=== PATIENT | male | born 1985 | race Hispanic/Latino ===

== ENCOUNTER 2018-05-06 06:56 | Emergency (ER) | payer SELFPAY ==
[2018-05-06] MEDS ORDERED: Ketorolac Tromethamine 60 MG/2 ML VIAL ONE (07:08)
== END 2018-05-06 07:40 | disposition home or self-care (01) ==
LOC: ERS 06:56
DX: M54.5 Low back pain (principal); F17.210 Nicotine dependence, cigarettes, uncomplicated
CPT/HCPCS: 96372; J1885

== ENCOUNTER 2018-05-06 09:05 | Emergency (ER) | payer SELFPAY ==
[2018-05-07] MEDS ORDERED: Ibuprofen 100 MG/5 ML UDCUP ONE (10:00)
== END 2018-05-06 09:56 | disposition home or self-care (01) ==
LOC: ERS 09:05
DX: M54.5 Low back pain (principal); F17.210 Nicotine dependence, cigarettes, uncomplicated
CPT/HCPCS: 99283

== ENCOUNTER 2019-12-19 21:39 | Observation (INO) | payer SELFPAY ==
[~2019-12-19 21:39] MED LIST: Iopamidol-370 76% 500 ML 1 ML ONE
[2019-12-19 23:23] LABS: Hemoglobin 11.4 g/dL (14.0-18.0); Mean Corpuscular HGB CONC 33.3 g/dL (32.0-36.0); Mean Corpuscular Hemoglobin 29.9 pg (27.0-31.0); Mean Corpuscular Volume 89.9 fL (78.0-98.0); RBC Distribution Width 14.3 % (11.5-14.5)
[2019-12-19 23:40] LABS: ALT (SGPT) 91 U/L (8-55); AST (SGOT) 38 U/L (5-34); Albumin 3.4 g/dL (3.5-5.0); Alkaline Phosphatase 121 U/L (40-110); Anion Gap 14 mmol/L (10-20); BUN (Urea Nitrogen) 25 mg/dL (8.9-20.6); Bilirubin, Total 0.2 mg/dL (0.2-1.2); Calc. Creatinine Clearance 0 mL/min (70-130); Calcium 8.7 mg/dL (7.8-10.44); Carbon Dioxide 28 mmol/L (22-29); Chloride 100 mmol/L (98-107); Estimated GFR-MDRD Greater than 90; Globulin 3.7 g/dL (2.4-3.5); Glucose 86 mg/dL (70-105); Lipase 22 U/L (8-78); Potassium 4.4 mmol/L (3.5-5.1); Protein, Total 7.1 g/dL (6.0-8.3); Sodium 138 mmol/L (136-145)
[2019-12-19 23:48] LABS: Eosinophils 1 % (0-10); Lymphocytes 24 % (21-51); MDiff Complete? YES; Mean Platelet Volume 6.1 fL (7.4-10.4); Neutrophil 75 % (42-75); Platelet Count 489 thou/uL (130-400); White Blood Cell (WBC) Count 6.8 thou/uL (4.8-10.8)
[2019-12-20] MEDS ORDERED: Ondansetron PF 4 MG/2 ML Vial ONE (00:19)
[2019-12-20] MEDS ORDERED: Morphine 4 MG/ML VIAL ONE (00:19)
--- NOTE | 2019-12-20 01:11 | PDOC.FPRHP ---
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 Per the patient's sisters, who were present during the evaluation, the patient recently underwent 5 sessions of chemotherapy before traveling back to the [facility] area in order to pursue treatment from Dr. Whittaker (Oncology). The patient's pain is localized to the RLQ and LLQ, is stabbing / burning in nature and does not radiation. The patient states that eating ice chips and drinking cold fluids help, along with PO Morphine and Methadone that he has been taking since his DC from the outside facility. The patient rates his pain as an 8/10 prior to administration of Morphine in the ED, and was 5/10 at the time of evaluation. The patient's associated symptoms are variable, and include GERD, polyuria, 20 LBS weight loss in ~1.5 weeks, hot/cold flashes, excessive sleep (> 20H per day) , CP (right-sided, worse with inspiration) and SOB with occasional nausea. The patient denies PRITCHARD, auditory or visual disturbances, epistaxis, rhinorrhea, oral ulcers, sore throat, cough, vomiting, diarrhea, constipation, dysuria, hematuria , penile lesions/masses, bloody stools, muscle aches/joint pains. Upon further questioning, the patient admitted to a recent bout of itching that he noticed under his scrotum. ED Course: While in the ED, the patient was given Morphine 4 mg IV, Zofran 4 mg PO and a 1L bolus of NS. Blood Type: O+, Antibody Negative Alk Phos: 121 AST: 38 ALT: 91 CT ABD/Pelvis: Report Pending - Allergies/Adverse Reactions Allergies Allergy/AdvReac Type Severity Reaction Status Date / Time No Known Allergies Allergy Unverified 12/20/19 02:28 - Home Medications Comments: Per the patient's DC summary from the outside facility, the patient's current medication regimen includes Morphine 15 mg PO Q6H PRN, Methadone 5 mg PO Q8H PRN , Baclofen 10 mg PO Q8H, Colace 100 mg PO BID, Zofran 4 mg PO Q4H PRN, Senna 2 tabs PO daily. - History PMHx: None Allergies: None PSHx: Ex Lap w/ Biopsy (Recent) FHx: Mother (HTN, DM2, COPD, CAD) Father (HLD, HTN, CVA) Paternal Grandfather ( Colon Cancer) Maternal Grandfather (Testicular Cancer) Social: Cigarettes 3/4 PPD (Recently Quit on 12/02), Methamphetamine Abuse (12/02 ), No EtOH Abuse Code: Full - Review of Systems General: reports: weight/appetite/sleep changes, fatigue. denies: fever/chills Eyes: denies: vision changes ENT: denies: nasal congestion, rhinorrhea Respiratory: reports: shortness of breath, exercise intolerance. denies: cough , congestion Cardiovascular: reports: chest pain. denies: palpitation, edema Gastrointestinal: reports: nausea, abdominal pain. denies: vomiting, diarrhea, constipation, GI bleeding Genitourinary: reports: dysuria (Patient reports dysuria at the end of his urinary stream), polyuria, other (Itching). denies: discharge Skin: reports: itching (See ) Musculoskeletal: denies: arthritis/arthralgias Neurological: denies: syncope, weakness - Vital signs BP: [119/67] HR: [96] RR: [16] Tmax: [98.2] Pox: [100]% on [Room Air] Wt: [71 kg] - Physical Exam Constitutional: NAD, awake, alert and oriented, well developed, other (Patient was mildly altered due to the recent administration of Morphine. A&Ox3) HEENT: normocephalic and atraumatic, PERRLA, EOMI, conjunctiva clear, no scleral icterus, grossly normal vision, grossly normal hearing, normal nasal mucosa, MMM, oropharynx clear Neck: supple, FROM, trachea midline, no LAD Chest: no-tender to palpation, no lesions Heart: RRR, normal S1/S2, no murmurs/rubs/gallops, pulses present, no edema Lungs: CTAB, no respiratory distress, good air movement, no rales/rhonchi, no wheezing, no retractions Abdomen: soft, bowel sounds present, no masses/distention -Abdomen: TTP in RLQ and LLQ Musculoskeletal: normal structure, ROM grossly normal Neurological: no focal deficit Skin: other (Diffuse macular rash in the perineal/inguinal areas w/o obvious sores, bleeding or crusting.) Heme/Lymphatic: no unusual bruising or bleeding, no purpura, no petechia, no LAD Psychiatric: other (Patient denied Suicidal Ideation - See General) FMR H&P: Results - Labs Result Diagrams: 12/19/19 23:09 12/19/19 23:09 Lab results: WBC 6.8 thou/uL (4.8-10.8) 12/19/19 23:09 Hgb 11.4 g/dL (14.0-18.0) L 12/19/19 23:09 Hct 34.1 % (42.0-52.0) L 12/19/19 23:09 MCV 89.9 fL (78.0-98.0) 12/19/19 23:09 Plt Count 489 thou/uL (130-400) H 12/19/19 23:09 Sodium 138 mmol/L (136-145) 12/19/19 23:09 Potassium 4.4 mmol/L (3.5-5.1) 12/19/19 23:09 Chloride 100 mmol/L (98-107) 12/19/19 23:09 Carbon Dioxide 28 mmol/L (22-29) 12/19/19 23:09 BUN 25 mg/dL (8.9-20.6) H 12/19/19 23:09 Creatinine 0.82 mg/dL (0.7-1.3) 12/19/19 23:09 Glucose 86 mg/dL (70-105) 12/19/19 23:09 Calcium 8.7 mg/dL (7.8-10.44) 12/19/19 23:09 Total Bilirubin 0.2 mg/dL (0.2-1.2) 12/19/19 23:09 AST 38 U/L (5-34) H 12/19/19 23:09 ALT 91 U/L (8-55) H 12/19/19 23:09 Alkaline Phosphatase 121 U/L (40-110) H 12/19/19 23:09 Serum Total Protein 7.1 g/dL (6.0-8.3) 12/19/19 23:09 Albumin 3.4 g/dL (3.5-5.0) L 12/19/19 23:09 Lipase 22 U/L (8-78) 12/19/19 23:09 FMR H&P: A/P - Problem List (1) Intractable abdominal pain Current Visit: Yes Status: Acute Code(s): R10.9 - UNSPECIFIED ABDOMINAL PAIN (2) Germ cell cancer Current Visit: Yes Status: Acute Code(s): C80.1 - MALIGNANT (PRIMARY) NEOPLASM, UNSPECIFIED (3) Fungal infection of skin Current Visit: Yes Status: Acute Code(s): B36.9 - SUPERFICIAL MYCOSIS, UNSPECIFIED (4) Weight loss, unintentional Current Visit: Yes Status: Acute Code(s): R63.4 - ABNORMAL WEIGHT LOSS (5) Polysubstance abuse Current Visit: Yes Status: Chronic Code(s): F19.10 - OTHER PSYCHOACTIVE SUBSTANCE ABUSE, UNCOMPLICATED - Plan Patient is a 34 y/o male with a recent diagnosis of Germ Cell Tumor ( Primary Origin Unknown) who presents to the ED for evaluation of intractable pain. 1. Intractable ABD Pain -Non-cancer causes of pain appear unlikely at this point - unremarkable HPI, ROS , Physical Exam -Lipase: 22 -Alk Phose: 121 -AST: 38 / ALT: 91 -Morphine 6 mg IV Q4H JOSE C for pain w/ Morphine 2 mg IV Q4H PRN for breakthrough pain -Will continue Methadone regimen -Consider Dilaudid or Anesthesia Consult if pain remains poorly controlled 2. Germ Cell Cancer -Records from outside facility given to Nursing staff -Oncology Consult: Pending 3. Fungal Infection -Localized to perineal/inguinal area - no obvious sores or oozing -Likely secondary to poor hygiene and immunocompromised state -Topical Clotrimazole 1% BID 4. Unintentional Weight Loss -Patient admits to ~20 LBS weight loss in past 2 weeks -Likely 2/2 to chemotherapy regimen -Will supplement Regular Diet as tolerated 5. Polysubstance Abuse -Patient admits to a Hx of Methamphetamine abuse -Will order UDS to rule out additional sources of intoxication PCP: None - Will Establish w/ Dr. Whittaker Code: Full Activity: Ad nancy Diet: Regular w/ Supplements VTE PPx: Lovenox 40 mg SC w/ SCDs Dispo: Patient is currently stable and will be admitted to the Oncology Floor for ongoing management of his intractable pain. Will likely consult Oncology in the AM - recs appreciated. 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 The oncologist in [place] spoke with Dr. Whittaker who agreed to continue treatment in [place] per report of family. The patient received 5 doses of chemotherapy last week. He states he has lost 20lbs in the last 2 weeks. Patient comes in tonight for intractable abdominal pain which has worsened since he left the hospital in [place]. The pain is worse with movement. He is still tolerating PO but has decreased appetite. He denies fevers, chills, sweats , vomiting, or diarrhea. He denies burning or blood with urination. REVIEW OF SYSTEMS: Gen: no fever, chills, or sweats Neuro: denies headache Eyes: no visual changes ENT: no hearing changes, no sore throat, no congestion Resp: denies cough, SOB Card: denies CP, palpitations GI: see hpi Skin: no rash, no erythema PHYSICAL EXAMINATION: General: NAD, alert and oriented x3 HEENT: PERRLA, EOMI, normal sclera, oropharynx without erythema or exudate Neck: Supple. Full ROM. Heart/Cardiovascular System: RRR, Cap refill < 3 seconds, no rub, no murmur Lungs/Respiratory System: CTA-B, no resp distress Abdomen/Gastro-Intestinal System: soft, mass palpable in suprapubic region, no guarding/rebound, normal bowel sounds Extremities: Warm extremities. No cyanosis or edema Neuro: No gross deficits appreciated. CN 2-12 grossly intact Psychiatry: Awake, Alert and cooperative with exam Skin: fungal infection affecting perineum, satellite lesions present Musculoskeletal: Full ROM A/P: # Metastatic Testicular Cancer, intractable pain/nausea - Consult Oncology in AM, appreciate recs - Cont methadone - Was on 60mg Morhine PO daily, coverts to 30mg IV daily o Started patient on 6mg morphine IV q6 JOSE C o 2mg q2 hr PRN for breakthrough - Zofran - Based on families report, mass has decreased in size from [place] to here based on Vrad read # Cutaneous Candidiasis - Start clotrimazole, may need oral tx of not improving # Transaminitis - Likely 2/2 metastatic cancer affecting abdomen] # Hx of substance abuse - Last used meth 2 weeks ago, UDS pending Fluids: LR 110ml/hr Code status: full, poa on file PPx: lovenox Dispo: pending establishing with onc, pain control
[2019-12-20 02:31] LABS: Bilirubin Negative (Negative); Blood, Urine Negative (Negative); Clarity Clear (Clear); Glucose, Urine (Dipstick) Normal (Negative); Leukocyte Negative Leu/uL (Negative); Nitrite Negative (Negative); Protein, Urine (Dipstick) Negative (Neg-Trace); Urobilinogen Normal mg/dL (Less than 2)
[2019-12-20 02:33] LABS: Amphetamine Not Detected (NotDetected); Barbiturates Screen Not Detected (NotDetected); Benzodiazepine Screen Not Detected (NotDetected); Cocaine Metabolite Screen Not Detected (NotDetected); Medtox Control Line Valid? VALID (VALID); Medtox Reader # READER 4; Methadone Detected (NotDetected); Methamphetamine Not Detected (NotDetected); Opiate Screen Detected (NotDetected); Oxycodone Screen Not Detected (NotDetected); Phencyclidine (PCP) Not Detected (NotDetected); THC/Cannabinoid Screen Not Detected (NotDetected); Tricyclic Screen Not Detected (NotDetected)
[2019-12-20] MEDS ORDERED: Acetaminophen 325 MG TAB PO PRN (03:56)
[2019-12-20] MEDS ORDERED: Morphine 2 MG/ML SYRINGE SLOW IVP PRN (03:56)
[2019-12-20] MEDS ORDERED: Ondansetron ODT 4 MG TAB PO PRN (03:56)
[2019-12-20] MEDS ORDERED: METHadone HCl 10 MG TAB PO PRN (03:56)
[2019-12-20] MEDS ORDERED: Docusate 100 MG CAP PO PRN (03:56)
[2019-12-20] MEDS: Lactated Ringer's 1,000 ML IV SCH ×3 (04:43→17:10)
[2019-12-20] MEDS: Morphine 10 MG/ML VIAL SLOW IVP SCH ×5 (05:10→21:37)
--- NOTE | 2019-12-20 05:34 | PDOC.FPRHP ---
- Allergies/Adverse Reactions Allergies Allergy/AdvReac Type Severity Reaction Status Date / Time No Known Allergies Allergy Unverified 12/20/19 02:28 - Home Medications Medication Instructions Recorded Confirmed Type Baclofen 10 mg PO Q8HR 12/20/19 12/20/19 History Docusate [Colace] 100 mg PO BID 12/20/19 12/20/19 History METHadone HCl [Methadone HCl] 5 mg PO Q8HR 12/20/19 12/20/19 History Morphine IR Tab 15 mg PO Q6HR PRN 12/20/19 12/20/19 History Ondansetron [Zofran ODT] 4 mg PO Q4HR PRN 12/20/19 12/20/19 History Sennosides [Senna] 8.6 mg PO BID 12/20/19 12/20/19 History - History PMHx: PSHx: FHx: Social: - Vital signs BP: [] HR: [] RR: [] Tmax: [] Pox: []% on [] Wt: [] FMR H&P: Results - Labs Result Diagrams: 12/19/19 23:09 12/19/19 23:09 Lab results: WBC 6.8 thou/uL (4.8-10.8) 12/19/19 23:09 Hgb 11.4 g/dL (14.0-18.0) L 12/19/19 23:09 Hct 34.1 % (42.0-52.0) L 12/19/19 23:09 MCV 89.9 fL (78.0-98.0) 12/19/19 23:09 Plt Count 489 thou/uL (130-400) H 12/19/19 23:09 Sodium 138 mmol/L (136-145) 12/19/19 23:09 Potassium 4.4 mmol/L (3.5-5.1) 12/19/19 23:09 Chloride 100 mmol/L (98-107) 12/19/19 23:09 Carbon Dioxide 28 mmol/L (22-29) 12/19/19 23:09 BUN 25 mg/dL (8.9-20.6) H 12/19/19 23:09 Creatinine 0.82 mg/dL (0.7-1.3) 12/19/19 23:09 Glucose 86 mg/dL (70-105) 12/19/19 23:09 Calcium 8.7 mg/dL (7.8-10.44) 12/19/19 23:09 Total Bilirubin 0.2 mg/dL (0.2-1.2) 12/19/19 23:09 AST 38 U/L (5-34) H 12/19/19 23:09 ALT 91 U/L (8-55) H 12/19/19 23:09 Alkaline Phosphatase 121 U/L (40-110) H 12/19/19 23:09 Serum Total Protein 7.1 g/dL (6.0-8.3) 12/19/19 23:09 Albumin 3.4 g/dL (3.5-5.0) L 12/19/19 23:09 Lipase 22 U/L (8-78) 12/19/19 23:09 Urine Ketones Negative mg/dL (Negative) 12/20/19 02:04 Urine Blood Negative (Negative) 12/20/19 02:04 Urine Nitrite Negative (Negative) 12/20/19 02:04 Ur Leukocyte Esterase Negative Anel/uL (Negative) 12/20/19 02:04 FMR H&P: A/P - Problem List (1) Intractable abdominal pain Current Visit: Yes Status: Acute Code(s): R10.9 - UNSPECIFIED ABDOMINAL PAIN (2) Germ cell cancer Current Visit: Yes Status: Acute Code(s): C80.1 - MALIGNANT (PRIMARY) NEOPLASM, UNSPECIFIED (3) Fungal infection of skin Current Visit: Yes Status: Acute Code(s): B36.9 - SUPERFICIAL MYCOSIS, UNSPECIFIED (4) Weight loss, unintentional Current Visit: Yes Status: Acute Code(s): R63.4 - ABNORMAL WEIGHT LOSS (5) Polysubstance abuse Current Visit: Yes Status: Chronic Code(s): F19.10 - OTHER PSYCHOACTIVE SUBSTANCE ABUSE, UNCOMPLICATED FMR H&P: Upper Level - Plan Date/Time: 12/20/19 0530 I, [], have evaluated this patient and agree with findings/plan as outlined by music internship resident. Pertinent changes/additions are listed here.
[2019-12-20 05:37] VITALS: BMI 25.0
[2019-12-20] MEDS ORDERED: METHadone HCl 10 MG TAB PO SCH (06:00)
--- NOTE | 2019-12-20 07:18 | CT ---
PRELIMINARY REPORT/[facility]/AFTER HOURS PROCEDURE CT ABDOMEN AND PELVIS WITH INTRAVENOUS CONTRAST: CLINICAL HISTORY: M34 presents to ED for abd pain and lethargy. Pt reports: nausea, lack of appetite, weakness. Pt stat es he was dx with germ cell cancer 2 weeks ago. Pt states last chemotherapy treatment was done Thursd ay. Pt states abd pain is a burning sensation. Pt reports unknown metastasis in the abd. Pt reports h x of methamphetamine use and states he last used in November. TECHNIQUE: Axial computed tomography images of the abdomen and pelvis with intravenous contrast. CONTRAST: With Isovue-370 100 mL. COMPARISON: None provided. FINDINGS: LUNG BASES: No basilar airspace consolidation or pleural effusion. LIVER: Unremarkable. GALLBLADDER AND BILE DUCTS: Unremarkable. No calcified stone. No ductal dilation. PANCREAS: Unremarkable. SPLEEN: Unremarkable. ADRENAL GLANDS: Unremarkable. KIDNEYS, URETERS, AND BLADDER: Unremarkable. No hydronephrosis or nephrolithiasis. No ureteral or lyn dder calculi. STOMACH AND BOWEL: Moderate retained fecal material within the colon, correlate for obstipation. APPENDIX: The appendix is somewhat prominent, no definite evidence of acute appendicitis. Correlate c linically may consider follow-up. PERITONEUM: No free fluid. No free air. LYMPH NODES: No lymphadenopathy. REPRODUCTIVE: Unremarkable as visualized. VASCULATURE: No aortic aneurysm. BONES: No fracture or suspicious osseous abnormality. ABDOMINAL WALL AND SOFT TISSUES: Unremarkable. MISCELLANEOUS: 6 x 12 x 13 cm oval mass at the lower abdomen is seen with mild surrounding fat strand ing-edema. There is suggestion of internal septation versus internal vascularity. There is thin perip heral wall enhancement. The mass appears predominantly hypodense. Given the clinical history, retrope ritoneal tumor/metastasis is suspected. Follow-up to exclude other considerations such as complex hem atoma abscess, or nonspecific soft tissue neoplasm. IMPRESSION: A 6 x 12 x 13 cm oval mass at the lower abdomen is seen with mild surrounding fat stranding-edema. Th ere is suggestion of internal septation versus internal vascularity. There is thin peripheral wall en hancement. The mass appears predominantly hypodense. Given the clinical history, retroperitoneal tumo r/metastasis is suspected. Follow-up to exclude other considerations. ELECTRONICALLY SIGNED BY: Tanvir Barajas MD Dec 20, 2019 12:39:27 AM GROUND CREW CHIEF This report is intended for review by the ordering physician only, in accordance of law. If you recei ve this report in error, please call [facility] at [phone]. FINAL REPORT CT ABDOMEN AND PELVIS WITH CONTRAST: FINDINGS/IMPRESSION: I agree with the findings and impression given in the preliminary report per the [facility] phy sician. There is a heterogeneous mass in the lower abdomen. The center of this mass is centered within the me sentery rather than in the retroperitoneum and it is favored that this is a mesenteric mass rather th an a retroperitoneal mass. In fact, the mass appears to extend slightly to the left on the inferior a spect and may extend toward the left inguinal canal. Please evaluate on physical examination for desc ended testicles. If a left testicle is not present then this could be a tumor of an undescended testi taylor. CODE QA
[2019-12-20] MEDS ORDERED: Milk Of Magnesia 30 ML UDCUP PO PRN (08:00)
[2019-12-20] MEDS ORDERED: Docusate 100 MG CAP PO SCH (08:00)
[2019-12-20] MEDS: Clotrimazole 1 % Cream 30 GM TUBE TOP SCH ×2 (08:15→21:39)
[2019-12-20] MEDS ORDERED: Prevnar 13-Val Conj/PF 0.5 ML SYRINGE IM ONE (09:00)
[2019-12-20] MEDS ORDERED: FLU VACC QS2019-20(6MOS UP)/PF 60 MCG/0.5 ML SYRINGE IM ONE (09:00)
--- NOTE | 2019-12-20 09:19 | ULT ---
Ultrasound of theabdomen: 12/20/2019 COMPARISON:None available HISTORY:Elevated liver enzymes History of germ cell tumor TECHNIQUE: Multiplanar grayscale sonographic imaging of theabdomen FINDINGS:The pancreas is obscured by bowel gas. Imaged IVC and aorta appear within normal limits. How ever, mid and distal abdominal aorta is obscured by bowel gas. No focal liver lesion or intrahepatic biliary dilatation. No gallbladder wall thickening or perichole cystic fluid. No gallstones noted. Gallbladder mildly distended. Common duct measures 3 mm, within normal limits. Right kidney measures 9.9 cm craniocaudal dimension and demonstrates no stone hydronephrosis or mass. Left kidney measures 10.1 cm craniocaudal dimension and demonstrates no stone hydronephrosis or mass. Spleen is normal in size measuring up to 10.4 cm. The automotive upholsterer reports a negative Garcia's s ign. IMPRESSION:No acute findings.
[2019-12-20] MEDS: Baclofen 10 MG TAB PO SCH ×3 (09:36→21:36)
[2019-12-20] MEDS: Famotidine 20 MG TAB PO SCH ×2 (09:36→21:36)
[2019-12-20] MEDS: Senokot 8.6 MG TAB PO SCH ×2 (09:36→21:37)
[2019-12-20] MEDS: Enoxaparin Sodium 40 MG/0.4 ML SYRINGE SC SCH (09:38)
[2019-12-20 10:28] LABS: Lactic Acid 1.1 mmol/L (0.5-2.2)
[2019-12-20 10:59] LABS: HBSAg Index 0.15 S/CO (0-0.99); Hep B Core Total Ab Non-Reactive (NonReactive); Hep B Core Total Index 0.05 S/CO (0-0.79); Hep B Surf Ag Non-Reactive S/CO (NonReactive); Hep C IgG Ab Non-Reactive (NonReactive)
[2019-12-20 11:52] LABS: HBSAB Concentration 4129.12 mIU/mL; Hep B Surf AB Reactive (NonReactive)
[2019-12-20] MEDS: METHadone HCl 10 MG TAB PO SCH ×2 (12:40→18:41)
--- NOTE | 2019-12-20 17:18 | HP ---
Please see the history and physical done by Scott Kirkland, for which I agree. The patient was seen, evaluated, discussed, and examined with the residents by bedside. HISTORY OF PRESENT ILLNESS: This is an unfortunate 34-year-old, who was diagnosed with germ cell cancer semi-testicular when he was visiting people in [place] in the last couple of months and was planning on transferring care to Dr. Whittaker here. It is supposed to be getting day #9 chemotherapy today and the plan was for him to drive to [place] this morning to get that, but he has had a severe pain last night that he came in for pain management. He is on home methadone 5 mg p.o. q.8 hours and morphine 15 mg p.o. q.6, but he is still on a lot of breakthrough pain and comes in to get better pain management and also to get Oncology involved here. Extremely nauseous, wants to vomit, but has not been vomiting. He does feel he is constipated. PAST MEDICAL HISTORY: All through the resident history and physical, for which I agree. PAST SURGICAL HISTORY: All through the resident history and physical, for which I agree. FAMILY HISTORY: All through the resident history and physical, for which I agree. ALLERGIES: ALL THROUGH THE RESIDENT HISTORY AND PHYSICAL, FOR WHICH I AGREE. HOME MEDICATIONS: All through the resident history and physical, for which I agree. REVIEW OF SYSTEMS: All through the resident history and physical, for which I agree. PHYSICAL EXAMINATION: VITAL SIGNS: Afebrile. Vital signs are stable. GENERAL: Does not appear to be in severe pain. Alert and oriented x3 appropriate. Eating well. EENT: Conjunctivae not pale. Sclerae anicteric. Moist mucosa. NECK: No JVD, lymphadenopathy, or bruits. CHEST: Clear. HEART: Regular rate and rhythm. ABDOMEN: Benign, other than right lower and suprapubic tenderness and obvious fullness in those areas. EXTREMITIES: Showed no edema. LABORATORY DATA: Does show a slightly low hemoglobin. Liver function tests slightly elevated. His calcium level was fine. ASSESSMENT AND PLAN: 1. Testicular cancer with retroperitoneal mass, likely metastatic issues. 2. Severe abdominal pain. 3. History of polysubstance abuse. Plan is to get Oncology involved if he truly needs a treatment today. I do not want to decrease that obviously. We will continue higher dose methadone, we will go to 10 mg q.8 and we switched morphine to 6 mg IV q.2 to 4 hours p.r.n. We will eventually have to figure out what home dose p.o. medications we can do for him that may work better. He did state IV Dilaudid last hospitalization was helpful. Does not appear to be in severe pain currently. Job ID: [id number]
[2019-12-21] MEDS: METHadone HCl 10 MG TAB PO SCH ×3 (01:52→18:30)
[2019-12-21] MEDS: Morphine 10 MG/ML VIAL SLOW IVP SCH ×3 (01:54→12:37)
[2019-12-21] MEDS: Lactated Ringer's 1,000 ML IV SCH (02:01)
[2019-12-21 04:30] LABS: #Lymphocytes 0.8 thou/uL (1.20-3.40); #Neutrophils 2.2 thou/uL (1.40-6.50); %Basophils 0.4 % (0.0-1.0); %Eosinophils 1.6 % (0.0-10.0); %Lymphocytes 25.9 % (21.0-51.0); %Monocytes 0.8 % (0.0-10.0); %Neutrophils 71.4 % (42.0-75.0); Hemoglobin 9.6 g/dL (14.0-18.0); Mean Corpuscular HGB CONC 33.9 g/dL (32.0-36.0); Mean Corpuscular Volume 88.6 fL (78.0-98.0); Mean Platelet Volume 6.3 fL (7.4-10.4); Platelet Count 356 thou/uL (130-400); RBC Distribution Width 14.1 % (11.5-14.5); White Blood Cell (WBC) Count 3.1 thou/uL (4.8-10.8)
[2019-12-21 04:40] LABS: Anion Gap 10 mmol/L (10-20); BUN (Urea Nitrogen) 14 mg/dL (8.9-20.6); Calc. Creatinine Clearance 149 mL/min (70-130); Calcium 8.6 mg/dL (7.8-10.44); Carbon Dioxide 29 mmol/L (22-29); Chloride 100 mmol/L (98-107); Estimated GFR-MDRD Greater than 90; Glucose 73 mg/dL (70-105); Potassium 4.1 mmol/L (3.5-5.1); Sodium 135 mmol/L (136-145)
--- NOTE | 2019-12-21 05:43 | PDOC.FM ---
- Subjective Subjective: He ate well last night. He says his pain is much better controlled. He had a large BM last night. - Objective MAR Reviewed: Yes Vital Signs & Weight: Vital Signs (12 hours) Temp Pulse Resp BP Pulse Ox 12/21/19 04:00 98.2 F 79 12 105/55 L 96 12/21/19 00:00 98.2 F 85 16 104/59 L 97 12/20/19 19:53 98.1 F 75 12 106/80 99 Weight Admit Weight 71.214 kg Weight 71.214 kg I&O: 12/19/19 12/20/19 12/21/19 06:59 06:59 06:59 Intake Total 1240.6 2452 Output Total 1500 Balance 1240.6 952 Result Diagrams: 12/21/19 04:10 12/21/19 04:10 Phys Exam - Physical Examination Constitutional: NAD HEENT: moist MMs, oral pharynx no lesions Neck: supple, full ROM Respiratory: no wheezing, no rales, no rhonchi, clear to auscultation bilateral Cardiovascular: RRR, no significant murmur Gastrointestinal: positive bowel sounds tender to palpation Musculoskeletal: no edema, pulses present Neurological: moves all 4 limbs Psychiatric: normal affect Skin: no rash, normal turgor Dx/Plan (1) Fungal infection of skin Code(s): B36.9 - SUPERFICIAL MYCOSIS, UNSPECIFIED Status: Acute (2) Germ cell cancer Code(s): C80.1 - MALIGNANT (PRIMARY) NEOPLASM, UNSPECIFIED Status: Acute (3) Intractable abdominal pain Code(s): R10.9 - UNSPECIFIED ABDOMINAL PAIN Status: Acute (4) Weight loss, unintentional Code(s): R63.4 - ABNORMAL WEIGHT LOSS Status: Acute (5) Polysubstance abuse Code(s): F19.10 - OTHER PSYCHOACTIVE SUBSTANCE ABUSE, UNCOMPLICATED Status: Chronic - Plan Plan: Patient is a 34 y/o male with a recent diagnosis of Germ Cell Tumor ( Primary Origin Unknown) who presents to the ED for evaluation of intractable pain. 1. Intractable ABD Pain Non-cancer causes of pain appear unlikely at this point - unremarkable HPI, ROS , Physical Exam * Lipase: 22 * Alk Phose: 121, AST: 38, ALT: 91 * Oral morphine with Morphine 2 mg IV Q4H PRN for breakthrough pain * Increased Methadone regimen from 5 to 10 yesterday * Bowel regimen due to pain medication 2. Germ Cell Cancer * Records from outside facility given to Nursing staff * Oncology Consulted (12/20), appreciate recs. * Pt was to have chemo in [place] on 12/20, but missed due to admission * Appt with Dr. Courtney 12/26. 3. Fungal Infection Localized to perineal/inguinal area - no obvious sores or oozing. Likely secondary to poor hygiene and immunocompromised state. * Topical Clotrimazole 1% BID 4. Unintentional Weight Loss Patient admits to ~20 LBS weight loss in past 2 weeks. Likely 2/2 to chemotherapy regimen. * Will supplement Regular Diet as tolerated 5. Polysubstance Abuse Patient admits to a Hx of Methamphetamine abuse * UDS: + Methadone and opiates * Patient states he used to use marijuana and methamphetamines, but stopped in November Code Status: Full Activity: Ad nancy Diet: Regular w/ Supplements VTE PPx: Lovenox 40 mg SC w/ SCDs PCP: None - Will Establish w/ Dr. Courtney Dispo:Onc obs, will adjust for pain and let oncology evaluate. D/c likely when pain is under control LOS < 48H.
[2019-12-21 06:06] LABS: ALT (SGPT) 68 U/L (8-55); AST (SGOT) 32 U/L (5-34); Albumin 3.2 g/dL (3.5-5.0); Alkaline Phosphatase 98 U/L (40-110); Bilirubin, Direct 0.1 mg/dL (0.1-0.3); Bilirubin, Total 0.2 mg/dL (0.2-1.2); Protein, Total 6.5 g/dL (6.0-8.3)
[2019-12-21 08:06] VITALS: TEMP 97.7
[2019-12-21] MEDS: Baclofen 10 MG TAB PO SCH (09:29)
[2019-12-21] MEDS: Famotidine 20 MG TAB PO SCH (09:29)
[2019-12-21] MEDS: Enoxaparin Sodium 40 MG/0.4 ML SYRINGE SC SCH (09:29)
[2019-12-21] MEDS: Clotrimazole 1 % Cream 30 GM TUBE TOP SCH (09:30)
[2019-12-21] MEDS: Senokot 8.6 MG TAB PO SCH (09:30)
[2019-12-21 09:54] LABS: Syphilis Antibody Nonreactive (Nonreactive); Syphilis Antibody Index 0.06 S/CO (<1.00 Non-Reactive)
[2019-12-21 09:55] LABS: HIV (1/2) Antibody/Antigen Non-Reactive (NonReactive)
[2019-12-21] MEDS: Morphine IR Tab 15 MG TAB PO PRN ×2 (11:09→18:29)
--- NOTE | 2019-12-21 12:41 | PRG ---
DATE OF SERVICE: 12/21/2019 ADDENDUM: This is an addendum to the note of Dr. Don Nelson. Mr. Vital is a very pleasant 34-year-old man who was recently discovered to have germ cell cancer. He is here for control of his pain as well as to continue his chemotherapy for the germ cell tumor. We have consulted Oncology and are awaiting their input. We are adjusting his pain regimen. This morning, he is awake, alert, in no acute distress, although still with some discomfort. So far, serologies reveal that he is HIV negative. His RPR was negative and his hepatitis B studies are consistent with prior immunization. Hep C antibody is also nonreactive. Job ID: [id number]
[2019-12-21] MEDS ORDERED: Enoxaparin Sodium 40 MG/0.4 ML SYRINGE SC SCH (14:30)
--- NOTE | 2019-12-21 15:02 | PDOC.EVN ---
Event Note - Event Note Event Note: Patient desires d/c so he can return to [place] for chemotherapy. Given 10 day supply of methadone and PO morphine. CORROSION CONTROL SPECIALIST reviewed an appropriate.
[2019-12-21 15:03] VITALS: BP 98/50
--- NOTE | 2019-12-21 23:29 | CON ---
DATE OF CONSULTATION: REASON FOR CONSULTATION: Testicular cancer. HISTORY OF PRESENT ILLNESS: Mr. 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 He was admitted to [facility] and received 5 days of cisplatin, etoposide and a dose of bleomycin. According to his sister, he was visiting friends there and had only been in [place] for several weeks. They went and saw him on Saturday and brought him back to this area. He began to have uncontrolled pain despite methadone and morphine and presented to the emergency room for pain control. He was due for bleomycin yesterday for day 9 and is due again for day 16 . The patient's medical records show an abdominal mass measuring 17.2 x 14.4 x 8.6 cm in [place]. He did have a repeat CT scan here and it measures 6 x 12 x 13 here. He has been given morphine with control of his pain. We were asked to see the patient regarding chemotherapy. PAST MEDICAL HISTORY: 1. History of methamphetamine use. 2. Possible obstructive sleep apnea. 3. Cryptorchidism. PAST SURGICAL HISTORY: Biopsy. ALLERGIES: NO KNOWN DRUG ALLERGIES. HOME MEDICATIONS: 1. Methadone 5 mg q.8 hours. 2. Morphine IR 15 mg q.6 hours. 3. Senna b.i.d. 4. Zofran p.r.n. 5. Colace b.i.d. FAMILY HISTORY: The patient unaware of any family history. SOCIAL HISTORY: Single, was living with friends in [place]. Every day smoker. History of methamphetamine use, stopped at diagnosis. REVIEW OF SYSTEMS: Positive for right upper quadrant abdominal pain. Otherwise, negative. PHYSICAL EXAMINATION: VITAL SIGNS: Temperature is 97.7, pulse is 98, respiratory rate 16, BP is 105/55. He is 96% on room air. GENERAL: This is a well-developed, worse-nourished male, in no acute distress. HEENT: Normocephalic, atraumatic. Pupils are equal and reactive to light. CV: Regular rate and rhythm. LUNGS: Clear. ABDOMEN: Slightly distended and tender to palpation in the right lower quadrant. EXTREMITIES: No clubbing or cyanosis. SKIN: No rash. HEMATOLOGICAL: No petechiae or purpura. NEUROLOGICAL: Nonfocal. PERTINENT LABS AND X-RAYS: Current WBCs are 3.1, hemoglobin 9.6, hematocrit 28.4, platelet count 356,000. He has 72% neutrophils, 26% lymphocytes. Sodium 135, potassium 4.1, chloride 100, CO2 is 29, BUN is 14, creatinine 0.71, calcium is 8.6, bilirubin 0.2, AST is 32, ALT is 68, alkaline phosphatase is 98. Serum total protein 6.5, albumin 3.2, lipase is 22. Radiology, per HPI. ASSESSMENT: 1. Testicular cancer, status post chemotherapy. 2. Poorly controlled abdominal discomfort. DISCUSSION: The patient's sister was at bedside during evaluation. She states that the patient has [place] Medicaid. She has applied for [place] Medicaid so he can continue treatment here. He is due for a dose of bleomycin and she has been in contact with the patient's Oncologist in [place] and has decided to take him back to receive his next 2 doses of bleomycin. Hopefully by the time cycle 2 is due, he will be established here with insurance and he can be seen in our office to continue treatment. Medical records have been sent to our office already. I would continue pain control as managed by Family Practice and discharge home to continue chemo in [place]. We will call his sister with an appointment once all information is in place. Thank you for the consult. Job ID: [id number]
--- NOTE | 2019-12-22 05:01 | DIS ---
DATE OF ADMISSION: 12/20/2019 DATE OF DISCHARGE: 12/21/2019 RESIDENT: Don Nelson MD. ADMITTING ATTENDING: Thierno Waddell MD. DISCHARGE ATTENDING: Hemant Quesada MD. CONSULTS: Oncology. The patient is to have his 1st appointment with Dr. Courtney on December 26. The patient was seen by Livier Stevens here in the hospital, but due to the patient having lack of [place] Medicaid, he cannot start chemo. He was supposed to have a dose of chemo on December 20. PROCEDURES: * Abdomen and pelvis CT on 12/19 showed a 6 x 12 x 13 oval mass at the right lower abdomen seen with mild surrounding fat stranding edema. There is suggested internal septation versus internal vascularity. There is thin peripheral wall enhancement. The mass appears predominantly hypodense given the clinical history, retroperitoneal tumor metastasis is suspected, followup to exclude other considerations. * Abdominal ultrasound on 12/20/19, no acute findings. PRIMARY DIAGNOSIS: 1. Intractable abdominal pain secondary to germ cell cancer 2. Fungal infection in groin. SECONDARY DIAGNOSES: 1. Unintentional weight loss. 2. Polysubstance abuse. DISCHARGE MEDICATIONS: 1. Tylenol 650 mg p.o. q.4 hours p.r.n. for pain. 2. Baclofen 10 mg p.o. q.8 hours for 30 days. 4. Clotrimazole 1% cream 1 mg topical b.i.d. for 30 days. 5. Methadone 10 mg q.8 hours for 10 days. 6. Morphine IR tab 15 mg p.o. q.6 hours for 10 days. DISCONTINUED MEDICATIONS: 1. IV morphine 6 mg q.4 hours. 2. Milk of magnesia. 3. Famotidine. 4. Lovenox. HISTORY OF PRESENT ILLNESS: The patient is a 34-year-old male who was recently diagnosed with germ cell cancer that was unknown in origin that reportedly had been localized to the scrotum and abdomen at outside facility on 12/11/2019, who presents to the ED for intractable pain per the patient's sister who was present during the evaluation. The patient recently underwent 5 sessions of chemotherapy before traveling back to [facility] in order to receive treatment from Dr. [facility] as the patient's pain is localized to the right lower quadrant and left lower quadrant. It is stabbing, burning in nature and does not radiate. The patient states that he is eating ice chips and drinking cold fluids help, along with p.o. morphine and methadone that he has been taking since his discharge from the outside facility. The patient rates his pain a 8/ 10 prior to administration of morphine in the ED and was 5/10 at the time of evaluation. The patient's associated symptoms are variable and include GERD, polyuria, 20-pound weight loss and 1.5 weeks of hot, cold flashes, excessive sleep greater than 20 hours per day, chest pain, right side worse with inspiration and shortness of breath with occasional nausea. The patient denies headache, auditory or visual disturbances, epistaxis, rhinorrhea, oral ulcers, sore throat, cough, vomiting, diarrhea, constipation, dysuria, hematuria, penile lesions, masses, bloody stools, muscle aches, joint pains. Upon further questioning, the patient admitted to recent bout of itching that he noticed around the scrotum. In the ED, the patient was given morphine 4 mg IV, Zofran 4 mg p.o., 1 L bolus of normal saline. The patient's alkaline phosphatase was elevated at 121, AST was 38 and ALT was 91. 1. Intractable abdominal pain, most likely contact cancer cause * Oral morphine restarted before discharge and he had p.r.n. morphine 2 mg q.4 hours p.r.n. for breakthrough pain. * His methadone regimen was increased from 5-10. * He was on a bowel regimen due to pain medication to germ cell cancer. * We obtained records from outside facility. * Oncology was consulted and saw him. * Recommendations were noted as above. * The patient was supposed to have chemo in [place] on 12/20, but missed due to admission. * The patient should follow up with Dr. Courtney on 12/26 for initial appointment. 2. Fungal infection of perineal & inguinal area. * No obvious sores or oozing, likely secondary to poor hygiene and immunocompromised state * Topical clotrimazole% b.i.d. was used and script was written. 3. Weightloss The patient has 20 pounds weight loss in the past 2 days, likely secondary to chemo regimen. * Regular diet. * Consulted dietitian, but were unable to see before discharge. 4. Polysubstance abuse. * Urine drug screen was positive for methadone and opiates. * The patient states he used to use marijuana and methamphetamines, but stopped in November. DISPOSITION: Stable. DISCHARGE INSTRUCTIONS: 1. Location: Home. 2. Diet: Regular. 3. Activity: As tolerated 4. Followup with Dr. Courtney on December 26 and follow up with PCP and in 7 days. Job ID: [id number] MTDD
== END 2019-12-21 18:45 | disposition home or self-care (01) ==
LOC: ERS 21:39 → ONC 12-20 01:12
PROVIDERS: ADMIT Family Medicine; ATTEND Family Medicine
DX: C62.90 Malignant neoplasm of unspecified testis, unspecified whether descended or undescended (principal); R10.31 Right lower quadrant pain; R10.32 Left lower quadrant pain; B37.2 Candidiasis of skin and nail; K21.9 Gastro-esophageal reflux disease without esophagitis; C79.89 Secondary malignant neoplasm of other specified sites; F15.10 Other stimulant abuse, uncomplicated; F11.10 Opioid abuse, uncomplicated; R63.4 Abnormal weight loss; Z68.25 Body mass index [BMI] 25.0-25.9, adult; Z87.891 Personal history of nicotine dependence; Z79.899 Other long term (current) drug therapy
CPT/HCPCS: 36415; 74177; 80048; 80053; 80076; 80306; 81003; 83605; 83690; 85025; 86704; 86706; 86780; 86803; 86850; 86900; 86901; 87340; 87389; 93975; 96361; 96372; 96374; 96375; 96376; G0378; J1650; J2270; J2405; Q9967

== ENCOUNTER 2019-12-24 22:36 | Emergency (ER) | payer SELFPAY ==
[2019-12-24] MEDS ORDERED: Ondansetron PF 4 MG/2 ML Vial ONE (23:15)
[2019-12-24 23:50] LABS: Hemoglobin 11.1 g/dL (14.0-18.0); Mean Corpuscular HGB CONC 33.9 g/dL (32.0-36.0); Mean Corpuscular Hemoglobin 29.8 pg (27.0-31.0); Mean Corpuscular Volume 88.1 fL (78.0-98.0); Mean Platelet Volume 7.4 fL (7.4-10.4); Platelet Count 189 thou/uL (130-400); RBC Distribution Width 14.3 % (11.5-14.5); Red Blood Cell (RBC) Count 3.71 mill/uL (4.70-6.10); White Blood Cell (WBC) Count 1.2 thou/uL (4.8-10.8)
[2019-12-24 23:56] LABS: ALT (SGPT) 43 U/L (8-55); AST (SGOT) 26 U/L (5-34); Albumin 4.1 g/dL (3.5-5.0); Alkaline Phosphatase 117 U/L (40-110); Anion Gap 14 mmol/L (10-20); BUN (Urea Nitrogen) 11 mg/dL (8.9-20.6); Bilirubin, Total 0.2 mg/dL (0.2-1.2); CK (CPK) 48 U/L (30-200); Calc. Creatinine Clearance 0 mL/min (70-130); Calcium 9.7 mg/dL (7.8-10.44); Carbon Dioxide 30 mmol/L (22-29); Chloride 99 mmol/L (98-107); Estimated GFR-MDRD Greater than 90; Globulin 4.4 g/dL (2.4-3.5); Glucose 71 mg/dL (70-105); Potassium 3.9 mmol/L (3.5-5.1); Protein, Total 8.5 g/dL (6.0-8.3); Sodium 139 mmol/L (136-145)
[2019-12-24 23:58] LABS: Band 2 % (5-11); Eosinophils 4 % (0-10); Lymphocytes 67 % (21-51); MDiff Complete? YES; Neutrophil 27 % (42-75); Nucleated RBC 2 % (0); Platelet Morphology Comment Appears Adequate
[2019-12-25] MEDS ORDERED: Morphine 4 MG/ML VIAL ONE
--- NOTE | 2019-12-25 08:40 | ULT ---
PRELIMINARY REPORT/[facility]/EMERGENCY AFTER HOURS PROCEDURE EXAM: US Abdomen complete CLINICAL HISTORY: RLQ pain, nausea DX germ cell CA, patient on chemo TECHNIQUE: Real-time ultrasound of the abdomen (complete) with image documentation. COMPARISON: CT chest, 12/20/2019 FINDINGS: LIVER: Unremarkable. GALLBLADDER: No gallstone. No gallbladder wall thickening. No pericholecystic fluid. COMMON BILE DUCT: No dilation. PANCREAS: Unremarkable where visualized. The distal pancreas is obscured by overlying bowel gas. KIDNEYS: Unremarkable. No hydronephrosis. SPLEEN: Unremarkable. AORTA: No aneurysm. IVC: Unremarkable as visualized. OTHER: Heterogeneous soft tissue mass in the right lower quadrant measuring 11.0 x 6.9 cm. Minimal i nternal vascularity. IMPRESSION: No identified acute sonographic abnormality. Redemonstration of a heterogeneous mass in the right lower quadrant. ELECTRONICALLY SIGNED BY: Osmar Singer MD Dec 25, 2019 1:20:53 AM NUT BLANKER OPERATOR This report is intended for review by the ordering physician only, in accordance of law. If you recei ve this report in error, please call [facility] at [phone]. FINAL REPORT ULTRASOUND ABDOMEN: HISTORY: Abdominal pain. COMPARISON: Abdominal ultrasound 12/20/2019. FINDINGS: Real-time, spence scale, and color evaluation of the abdomen was performed. Findings and impression are concordant with the preliminary report. POS: CET
== END 2019-12-25 02:04 | disposition home or self-care (01) ==
LOC: ERS 22:36
DX: R19.00 Intra-abdominal and pelvic swelling, mass and lump, unspecified site (principal); F41.9 Anxiety disorder, unspecified; F32.9 Major depressive disorder, single episode, unspecified; F17.210 Nicotine dependence, cigarettes, uncomplicated; F25.9 Schizoaffective disorder, unspecified; R11.0 Nausea
CPT/HCPCS: 80053; 82550; 85025; 93975; 96361; 96374; 96375; J2270; J2405